=== PATIENT | male | born 1950 | race Caucasian/White ===

== ENCOUNTER 2024-12-10 12:16 | Emergency (ER) | payer MEDICARE ==
[~2024-12-10] VITALS: Ht 175.3 cm; Wt 84.4 kg
[2024-12-10] MEDS ORDERED: LIDOCAINE 5% (PATCH) 1 EA PATCH TP ONE (12:30)
[2024-12-10] MEDS ORDERED: HYDROCODONE/APAP 5/325MG TABLET ONE (12:30)
[2024-12-10] MEDS ORDERED: CYCLOBENZAPRINE 10 MG TABLET ONE (12:31)
[2024-12-10] MEDS: CYCLOBENZAPRINE 10 MG TABLET PO ONE (12:34)
[2024-12-10] MEDS: HYDROCODONE/APAP 5/325MG TABLET PO ONE (12:34)
[2024-12-10] MEDS: LIDOCAINE 5% (PATCH) 1 EA PATCH TP STA (13:30)
[2024-12-10] MEDS ORDERED: LIDO30AD10 TP (14:15)
[2024-12-10] MEDS ORDERED: CYCL5TAB PO (14:15)
[2024-12-10] MEDS ORDERED: HYDR-4303 PO (14:15)
[2024-12-10 14:30] VITALS: BP 145/94; TEMP 97.9; O2SAT 99
== END 2024-12-10 14:31 | disposition home or self-care (01) ==
LOC: ER 12:38
DX: M54.6 Pain in thoracic spine (principal); Z60.2 Problems related to living alone; W10.9XXA Fall (on) (from) unspecified stairs and steps, initial encounter; Y93.89 Activity, other specified; Y92.89 Other specified places as the place of occurrence of the external cause; Y99.8 Other external cause status
CPT/HCPCS: 71250-TC